=== PATIENT | female | born 1990 ===

== ENCOUNTER 2018-07-23 10:59 | Emergency (ER) | payer MEDICAID, OTHER ==
[2018-07-23 11:09] VITALS: RESP 18; O2SAT 99
[2018-07-23] MEDS ORDERED: Tmp-Smz 800 mg-160 mg DS Tab PO STA (11:20)
--- NOTE | 2018-07-23 11:30 | C.PDOC ---
History Of Present Illness 28-year-old female presents to the ED complaining of a painful mass to her right vaginal area for 4 days. Patient notes the area has become increasingly painful, red, and swollen. Also states it has become uncomfortable to sit. She applied an [id number] antibiotic cream without relief. Otherwise she denies any fever, vaginal bleeding, or drainage from the site. Time Seen by Provider: 07/23/18 11:20 Chief Complaint (Nursing): Abnormal Skin Integrity History Per: Patient History/Exam Limitations: no limitations Onset/Duration Of Symptoms: Days (x4) Current Symptoms Are (Timing): Still Present Past Medical History Reviewed: Historical Data, Nursing Documentation, Vital Signs Vital Signs: Last Vital Signs Temp 98.6 F 07/23/18 11:08 Pulse 91 H 07/23/18 11:08 Resp 18 07/23/18 11:08 BP 122/76 07/23/18 11:08 Pulse Ox 99 07/23/18 11:08 Family History: States: No Known Family Hx - Social History Hx Tobacco Use: No Hx Alcohol Use: No Hx Substance Use: No Review Of Systems Except As Marked, All Systems Reviewed And Found Negative. Constitutional: Negative for: Fever, Chills Genitourinary: Negative for: Dysuria, Vaginal Discharge, Vaginal Bleeding Skin: Positive for: Other (+abscess to right vaginal area, no drainage) Physical Exam - Physical Exam Appears: Non-toxic, No Acute Distress Skin: Warm, Dry Head: Atraumatic, Normacephalic Eye(s): bilateral: Normal Inspection Neck: Normal ROM Chest: Symmetrical Respiratory: No Accessory Muscle Use, Other (speaking in full sentences) Pelvic: Other (External exam: 2x2.5 cm tender fluctuant mass to the right labia, no drainage; mild erythema noted) Extremity: Bilateral: Normal Color And Temperature, Normal ROM Neurological/Psych: Oriented x3, Normal Speech ED Course And Treatment O2 Sat by Pulse Oximetry: 99 (RA) Pulse Ox Interpretation: Normal - Incision & Drainage Of Abscess Anesthesia: Lidocaine 1% Prep Used: Sterile Water, Betadine Procedure: Incised W/Scalpel Blade#: (11), Drained Pus, Irrigated Cavity W/Saline, Packed W/Gauze (1 inch iodoform), Cultures Obtained And Sent To Lab Medical Decision Making Medical Decision Making: Initial Plan: I&D of abscess. Patient declined procedure stating she is afraid of needles. Ordered Motrin, Bactrim and Keflex. 1133 After speaking with her family member via phone the patient then gave verbal consent for I&D procedure. Lido 1% ordered for I&D procedure. See note. Wound culture obtained. Patient tolerated procedure well. Dressing applied. Patient remained afebrile alert and oriented with stable vital signs during ER evaluation. Patient feels comfortable going home and will be discharged. Patient given follow up instructions. Instructed to return to ER if symptoms worsen or new symptoms arise. Disposition Counseled Patient/Family Regarding: Diagnosis, Need For Followup, Rx Given - Disposition Referrals: [facility] at [facility] [Outside] [facility] [Outside] Disposition: HOME/ ROUTINE Disposition Time: 11:00 Condition: GOOD Additional Instructions: dileep antibiticos dos veces al da dileep medicamentos para el dolor segn sea necesario Tone un seguimiento con santana mdico o clnica en 2 samuels para quitar mecha Prescriptions: Cephalexin [cephalexin] 500 mg PO Q12 #14 cap Ibuprofen [Motrin] 600 mg PO Q8 #30 tab Sulfamethoxazole/Trimethoprim [Bactrim DS 800 mg-160 mg] 1 tab PO BID #14 tab Instructions: Boil (DC) Print Language: JORDANIAN - POA Present On Arrival: None - Clinical Impression Clinical Impression: Abscess of labia - PA / CHANGE MANAGEMENT CONSULTANT / Resident Statement MD/DO has reviewed & agrees with the documentation as recorded. - Scribe Statement The provider has reviewed the documentation as recorded by the Scribe (Rubi Vernon) All medical record entries made by the Scribe were at my direction and personally dictated by me. I have reviewed the chart and agree that the record accurately reflects my personal performance of the history, physical exam, medical decision making, and the department course for this patient. I have also personally directed, reviewed, and agree with the discharge instructions and disposition.
[2018-07-23] MEDS ORDERED: Tmp-Smz 800 mg-160 mg DS Tab ONE (11:42)
[2018-07-23] MEDS ORDERED: Lidocaine 1% Inj (20ml) INFIL STA (11:53)
[2018-07-23] MEDS ORDERED: Lidocaine Hydrochloride 5 ML INJ ONE (12:10)
[2018-07-23 12:36] VITALS: BP 104/68; PULSE 86; TEMP 98.4
== END 2018-07-23 12:40 | disposition home or self-care (01) ==
LOC: C.ER 10:59
DX: N76.4 Abscess of vulva (principal)

== ENCOUNTER 2018-07-26 11:59 | Emergency (ER) | payer MEDICAID, OTHER ==
[2018-07-26 12:17] VITALS: BP 101/65; PULSE 75; RESP 16; TEMP 97.8; O2SAT 99
--- NOTE | 2018-07-26 13:16 | C.PDOC ---
History Of Present Illness 28yo female, comes to ER for a reevaluation of her wound. Patient had an I&D on 07/23 of an abscess in her pubic region and was discharged home with Keflex and Bactrim. Patient states she has been taking her medications and caring for her wounds as instructed; denies any fever, new pain, discharge or swelling. Time Seen by Provider: 07/26/18 12:47 Chief Complaint (Nursing): Abnormal Skin Integrity History Per: Patient History/Exam Limitations: no limitations Onset/Duration Of Symptoms: Days Quality Of Symptoms: denies: Painful, Itching, Swollen, Draining Additional History Per: Patient Past Medical History Reviewed: Historical Data, Nursing Documentation, Vital Signs Vital Signs: Last Vital Signs Temp 97.8 F 07/26/18 12:08 Pulse 75 07/26/18 12:08 Resp 16 07/26/18 12:08 BP 101/65 07/26/18 12:08 Pulse Ox 99 07/26/18 12:08 - Medical History PMH: No Chronic Diseases Surgical History: No Surg Hx Family History: States: No Known Family Hx - Social History Hx Tobacco Use: No Hx Alcohol Use: No Hx Substance Use: No - Immunization History Hx Tetanus Toxoid Vaccination: No Hx Influenza Vaccination: No Hx Pneumococcal Vaccination: No Review Of Systems Except As Marked, All Systems Reviewed And Found Negative. Constitutional: Negative for: Fever, Chills Skin: Positive for: Other (healing I&D site on pubic region) Physical Exam - Physical Exam Appears: Non-toxic, No Acute Distress Skin: Warm, Dry, Other (healing abscess noted to pubic region; no packing. No surrounding erythema, edema, or tenderness) Head: Atraumatic, Normacephalic Eye(s): bilateral: Normal Inspection Neck: Supple Chest: Symmetrical Neurological/Psych: Oriented x3 ED Course And Treatment O2 Sat by Pulse Oximetry: 99 (RA) Pulse Ox Interpretation: Normal Progress Note: Culture report from previous visit reviewed, (+) for MRSA, however sensitive to Bactrim which patient is currently taking. Patient informed to continue medications and apply warm compress to the area. Informed to follow up with PMD in 2-3 days. Disposition - Disposition Disposition: HOME/ ROUTINE Disposition Time: 13:14 Condition: STABLE Additional Instructions: Follow up with your PMD/Clinic. Continue taking all medications as previously instructed. Return to ED if feel worse. Instructions: Wound Care (DC) Forms: Pets are family too (Hungarian) Print Language: MONTENEGRIN - Clinical Impression Clinical Impression: Wound check, abscess - PA / CULINARY ARTS INSTRUCTOR / Resident Statement MD/DO has reviewed & agrees with the documentation as recorded. - Scribe Statement The provider has reviewed the documentation as recorded by the Umair Braun Provider Attestation: All medical record entries made by the Umair were at my direction and personally dictated by me. I have reviewed the chart and agree that the record accurately reflects my personal performance of the history, physical exam, medical decision making, and the department course for this patient. I have also personally directed, reviewed, and agree with the discharge instructions and disposition.
== END 2018-07-26 13:20 | disposition home or self-care (01) ==
LOC: C.ER 11:59
DX: Z48.00 Encounter for change or removal of nonsurgical wound dressing (principal); L02.818 Cutaneous abscess of other sites

== ENCOUNTER 2018-09-01 12:05 | Emergency (ER) | payer OTHER ==
[2018-09-01 12:24] VITALS: BP 108/70; PULSE 83; RESP 18; TEMP 98.3; O2SAT 98
--- NOTE | 2018-09-01 12:48 | C.PDOC ---
History Of Present Illness 28 year old female presents to the ED for evaluation of bumps to her vulvar area. Patient has had multiple prior presentations for the same; she has had small infected folliculi with a previous Incision and Drainage procedure. Patient states she shaves and waxes her bikini area, which sometimes provokes this. She is requesting a pill to help prevent this. Patient denies fever, chills. Time Seen by Provider: 09/01/18 12:40 Chief Complaint (Nursing): Female Genitourinary History Per: Patient History/Exam Limitations: no limitations Onset/Duration Of Symptoms: Days Current Symptoms Are (Timing): Still Present Additional History Per: Patient Past Medical History Reviewed: Historical Data, Nursing Documentation, Vital Signs Vital Signs: Last Vital Signs Temp 98.3 F 09/01/18 12:20 Pulse 83 09/01/18 12:20 Resp 18 09/01/18 12:20 BP 108/70 09/01/18 12:20 Pulse Ox 98 09/01/18 12:20 - Medical History PMH: No Chronic Diseases Surgical History: No Surg Hx Family History: States: Unknown Family Hx - Social History Hx Tobacco Use: No Hx Alcohol Use: No Hx Substance Use: No - Immunization History Hx Tetanus Toxoid Vaccination: No Hx Influenza Vaccination: Yes Hx Pneumococcal Vaccination: No Review Of Systems Constitutional: Negative for: Fever, Chills Skin: Positive for: Other (bumps to vulvar region ) Physical Exam - Physical Exam Appears: Non-toxic, No Acute Distress Skin: Normal Color, Warm, Dry Oral Mucosa: Moist Neck: Supple Pelvic: Other (deferred) Neurological/Psych: Oriented x3, Normal Speech, Normal Cognition ED Course And Treatment O2 Sat by Pulse Oximetry: 98 (on RA) Pulse Ox Interpretation: Normal Medical Decision Making Medical Decision Making: velvet de afeitar la area para prevenir infecciones locales Sigue con santana gynocologo. Disposition Doctor Will See Patient In The: Office Counseled Patient/Family Regarding: Studies Performed, Diagnosis - Disposition Referrals: James Edmondson MD [Medical Doctor] - Disposition: HOME/ ROUTINE Disposition Time: 12:48 Condition: GOOD Additional Instructions: velvet de afeitar la area Sigue con santana Gynocologo Forms: General Discharge Instructions, [facility] (Burundian) Print Language: UZBEK - Clinical Impression Clinical Impression: Labia irritation - Scribe Statement The provider has reviewed the documentation as recorded by the Scribe (Juliana Goetz) Provider Attestation: All medical record entries made by the Scribe were at my direction and personally dictated by me. I have reviewed the chart and agree that the record accurately reflects my personal performance of the history, physical exam, medical decision making, and the department course for this patient. I have also personally directed, reviewed, and agree with the discharge instructions and disposition.
== END 2018-09-01 13:06 | disposition home or self-care (01) ==
LOC: C.ER 12:05
DX: N89.8 Other specified noninflammatory disorders of vagina (principal)